=== PATIENT | male | born 1960 | race Caucasian/White ===

== ENCOUNTER → 2018-12-30 10:19 | Outpatient (CLI) | payer OTHER, SELFPAY ==
[2018-12-30 11:07] LABS: Hematocrit 41.1 % (41-53); Hemoglobin 13.7 g/dL (13.5-17.5); Mean Corpuscular HGB Conc 33.3 % (30-36); Mean Corpuscular Hemoglobin 30.1 PG (26-34); Mean Corpuscular Volume 90.3 fL (80-100); Platelet Count 267 X10^3/uL (150-400); Red Blood Cell Count 4.55 X10^6/uL (4.5-5.9); Red Cell Distribution Width 14.2 % (11.6-14.8)
[2018-12-30 11:17] LABS: Hemoglobin A1C% w Est Avg Glu 5.1 % (4.0-6.0)
[2018-12-30 12:10] LABS: Alanine Aminotransferase 35 IU/L (21-72); Albumin 4.2 g/dL (3.5-5.0); Albumin Globulin Ratio 1.4 (1.0-2.8); Alkaline Phosphatase 64 U/L (38-126); Aspartate Aminotransferase 27 IU/L (17-59); BUN Creatinine Ratio 14.4 (6-22); Bilirubin Total 0.6 mg/dL (0.2-1.3); Blood Urea Nitrogen 13 mg/dL (9-20); Calcium 9.6 mg/dL (8.4-10.2); Carbon Dioxide 26 mmol/L (22-32); Chloride 101 mmol/L (98-107); Cholesterol 148 mg/dL (140-199); Estimated Glomerular Filt Rate > 60.0 mL/min (>60); Glucose 110 mg/dL (70-100); HDL Cholesterol 52 mg/dL (40-60); HEMOLYSIS < 15 (0-50); LDL Cholesterol Calculated 82 mg/dL (<100); Potassium 4.5 mmol/L (3.4-5.1); Sodium 136 mmol/L (137-145); Total Protein 7.2 g/dL (6.3-8.2); Triglycerides 71 mg/dL (35-150)
[2018-12-30 12:38] LABS: Thyroid Stimulating Hormone < 0.02 uIU/mL (0.47-4.68)
== END ==
PROVIDERS: PCP Nurse Practitioner Family; Visit Provider Nurse Practitioner Family
DX: Z68.25 Body mass index [BMI] 25.0-25.9, adult (principal); E03.9 Hypothyroidism, unspecified
CPT/HCPCS: 36415; 80053; 80061; 83036; 84443; 85027

== ENCOUNTER → 2019-03-31 14:56 | Outpatient (CLI) | payer OTHER, SELFPAY ==
[2019-03-31 19:14] LABS: Thyroid Stimulating Hormone < 0.02 uIU/mL (0.47-4.68)
== END ==
PROVIDERS: PCP Nurse Practitioner Family; Visit Provider Nurse Practitioner Family
DX: E03.9 Hypothyroidism, unspecified (principal)
CPT/HCPCS: 36415; 84443

== ENCOUNTER → 2019-06-16 14:05 | Outpatient (CLI) | payer OTHER, SELFPAY ==
[2019-06-16 15:08] LABS: Thyroid Stimulating Hormone 6.71 uIU/mL (0.47-4.68)
== END ==
PROVIDERS: PCP Nurse Practitioner Family; Visit Provider Nurse Practitioner Family
DX: E03.9 Hypothyroidism, unspecified (principal); Z51.81 Encounter for therapeutic drug level monitoring
CPT/HCPCS: 36415; 84443

== ENCOUNTER → 2019-11-03 13:44 | Outpatient (CLI) | payer OTHER, SELFPAY | PROVIDERS: PCP Nurse Practitioner Family; Visit Provider Nurse Practitioner Family | DX: E03.9 Hypothyroidism, unspecified (principal) | CPT/HCPCS: 36415; 84443 ==

== ENCOUNTER → 2021-03-30 10:51 | Outpatient (CLI) | payer OTHER, SELFPAY ==
[2021-03-30 11:51] LABS: Alanine Aminotransferase 22 IU/L (<50); Albumin 4.6 g/dL (3.5-5.0); Albumin Globulin Ratio 1.4 (1.0-2.8); Alkaline Phosphatase 65 U/L (38-126); Aspartate Aminotransferase 47 IU/L (17-59); BUN Creatinine Ratio 17.5 (6-22); Bilirubin Total 0.5 mg/dL (0.2-1.3); Blood Urea Nitrogen 20 mg/dL (9-20); Calcium 9.6 mg/dL (8.4-10.2); Carbon Dioxide 26 mmol/L (22-32); Chloride 102 mmol/L (98-107); Estimated Glomerular Filt Rate > 60.0 mL/min (>60); Globulin 3.4 g/dL (1.7-4.1); Glucose 99 mg/dL (70-100); HEMOLYSIS < 15 (0-50); Sodium 137 mmol/L (137-145)
[2021-03-30 11:57] LABS: Hemoglobin A1C% w Est Avg Glu 5.5 % (4.0-6.0)
[2021-03-30 12:46] LABS: Free T4, Direct Thyroxine 0.39 ng/dL (0.78-2.19)
[2021-03-30 13:48] LABS: Thyroid Stimulating Hormone 117 uIU/mL (0.47-4.68)
== END ==
PROVIDERS: PCP Nurse Practitioner Family; Referring Provider Family Medicine; Visit Provider Family Medicine
DX: E03.9 Hypothyroidism, unspecified (principal); F41.9 Anxiety disorder, unspecified
CPT/HCPCS: 36415; 80053; 83036; 84439; 84443

== ENCOUNTER → 2021-07-27 14:47 | Outpatient (CLI) | payer OTHER, SELFPAY ==
[2021-07-27 16:30] LABS: Thyroid Stimulating Hormone 12.3 uIU/mL (0.47-4.68)
== END ==
PROVIDERS: PCP Nurse Practitioner Family; Referring Provider Nurse Practitioner Family; Visit Provider Nurse Practitioner Family
DX: E03.9 Hypothyroidism, unspecified (principal)
CPT/HCPCS: 36415; 84439; 84443

== ENCOUNTER 2021-09-19 14:37 | Observation (INO) | payer OTHER, SELFPAY ==
[2021-09-19] VITALS (36 sets, daily range): BP systolic 113–151; BP diastolic 66–94; PULSE 51–80; RESP 13–43; TEMP 36.7; O2SAT 97–99
--- NOTE | 2021-09-19 14:59 | ED.GENADULT ---
HPI - General Adult General Chief complaint: Dizziness Stated complaint: Dizzy, and hard to breath Time Seen by Provider: 09/19/21 14:54 Source: patient Mode of arrival: Wheelchair Limitations: altered mental status History of Present Illness HPI narrative: Patient is a 61-year-old male who arrived to the emergency department by private vehicle for what was initially described as dizziness and problems breathing. Patient is confused and seems to have a hard time he specifically saying why he is here. He denies chest pain although he seems to sometimes inappropriately answer questions so unsure as to what exactly to believe with regard to his answers. He talks about falling sometime within the past couple days. Unsure as to how he fell. When asked if he is having leg pain he answers with ?baseball bat ?unsure as to how long his symptoms have been going on. He denies abdominal pain. Denies vomiting. He does deny headache. Related Data Home Medications Medication Instructions Recorded Confirmed levothyroxine 175 mcg tablet 175 mcg PO QAM 09/19/21 09/19/21 Previous Rx's Medication Instructions Recorded hydroxyzine pamoate 50 mg capsule 50 mg PO BEDTIME PRN #60 cap 11/05/20 Allergies Allergy/AdvReac Type Severity Reaction Status Date / Time zolpidem [From Ambien] Allergy Severe throat Verified 09/19/21 15:00 swelling lithium Allergy Intermediate Lightheadedness, Verified 09/19/21 15:00 ringing ears. trazodone Allergy Patient Verified 09/19/21 15:00 unsure, thinks he may have been allergic to it. Review of Systems Review of Systems Narrative: Patient has positive and negative answers are listed below however I have some concern about the accuracy given his presentation Constitutional Constitutional: Denies headache(s) ENT Ears, Nose, Mouth, and Throat: Denies headache(s) Cardiovascular Cardiovascular: Denies chest pain and Reports dyspnea Respiratory Respiratory: Reports dyspnea Gastrointestinal Gastrointestinal: Denies abdominal pain and Denies vomiting Musculoskeletal Comments: No extremity tenderness Neurologic Neurologic: Reports as per HPI and Denies headache(s) Hematologic/Lymphatic On Anticoagulants: No Patient History Medical History Anxiety Bipolar disorder Depression Eczema (~1975) Headache Insomnia Low back strain Surgical History Anesthesia Fractures (~1981) History of hernia repair (~1969) Family History Father Glaucoma Hypertension Social History Smoking Status: Never smoker second hand exposure: No alcohol intake: never substance use type: does not use Smoking Status: Never smoker alcohol intake frequency: 0-2 drinks per day Substance Use Type: does not use Exam Initial Vital Signs Initial Vital Signs: Vital Signs Temperature 98.1 F 09/19/21 14:45 Pulse Rate 69 09/19/21 14:45 Respiratory Rate 22 09/19/21 14:45 Blood Pressure 133/86 09/19/21 14:45 Pulse Oximetry 99 09/19/21 14:45 Const General: cooperative, healthy appearing, well developed, well groomed and No ill appearing HENMT Head: normal to inspection and normocephalic Mouth: moist mucous membranes Eyes Pupils: PERRL EOM: EOM intact bilaterally Resp Effort & Inspection: normal respiratory effort Auscultation: clear to auscultation bilaterally Cardio Rate: regular rate Rhythm: regular rhythm GI Inspection: non-distended Palpation: soft Skin General: no rashes or lesions noted Neuro Other: Patient does move all 4 extremities. Is ambulatory. Strength is equal bilateral. Does follow commands but does provide inappropriate answers. Extrem General: capillary refill normal Psych Appearance: grossly normal and well kempt Scores GCS Renaldo coma scale eye opening: Spontaneous Renaldo coma scale verbal response: Words Renaldo coma scale motor response: Obey commands Renaldo coma scale total score: 13 Course Orders Ordered: ED Orders 09/19/21 14:55 Acetaminophen Stat Complete Blood Count AUTO DIFF Stat Comprehensive Metabolic Panel Stat Ethanol (ETOH) Stat Lipase Stat NT-proBNP (BNP-Adult 18+) Stat Salicylate Stat Thyroid Stimulating Hormone Stat Troponin & CK Cardiac Panel Stat 09/19/21 15:00 COVID19 -Nasal swab/Pre-Proc Stat 09/19/21 15:01 CT head/brain wo con Stat EKG-12 Lead Stat 09/19/21 15:03 COVID19 - ADMIT ([employer] swab/PCR) Stat 09/19/21 17:09 Urine Drug Screen, Rapid Stat 09/19/21 17:20 Urinalysis and Microscopic Stat Acetaminophen (Acetaminophen 325 Mg Tablet) 650 mg PO Q6HR PRN PRN Reason: Fever/Mild Pain (1-3) Enoxaparin Sodium (Enoxaparin 40 Mg/0.4 Ml Syringe) 40 mg SUBCUT DAILY [facility] Sodium Chloride (Normal Saline 0.9%) 1,000 mls @ 100 mls/hr IV CONT JULIA Last Admin: 09/19/21 18:39 Dose: 100 mls/hr Documented by: TIGRE Naloxone HCl (Naloxone 0.4 Mg/Ml Vial) 0.2 mg IV Q2MIN PRN PRN Reason: Opiate Reversal Ondansetron HCl (Ondansetron 4 Mg/2 Ml Inj) 4 mg IV Q8HR PRN PRN Reason: Nausea And Vomiting Vital Signs Vital signs: Vital Signs - 8 hr 09/19/21 14:45 09/19/21 14:51 09/19/21 15:00 Temperature 98.1 F Pulse Rate 69 69 65 Respiratory Rate 22 18 16 Blood Pressure 133/86 151/79 H Pulse Oximetry 99 98 98 09/19/21 15:16 09/19/21 15:30 09/19/21 15:45 Temperature Pulse Rate 58 L 54 L Respiratory Rate 13 Blood Pressure Pulse Oximetry 98 09/19/21 16:00 09/19/21 16:15 09/19/21 16:55 Temperature Pulse Rate 58 L 61 80 Respiratory Rate Blood Pressure Pulse Oximetry 09/19/21 16:56 09/19/21 17:02 Temperature Pulse Rate Respiratory Rate Blood Pressure 135/88 134/87 Pulse Oximetry Medical Decision Making Lab Data Lab results reviewed: Yes I reviewed the patient's lab results. Result diagrams: 09/19/21 14:55 09/19/21 14:55 Labs: Lab Results 09/19/21 09/19/21 09/19/21 Range/Units 14:55 14:55 14:55 WBC 7.1 (4.5-11.0) X10^3/uL RBC 4.42 L (4.5-5.9) X10^6/uL Hgb 13.5 (13.5-17.5) g/dL Hct 39.8 L (41-53) % MCV 90.0 (80-100) fL MCH 30.6 (26-34) PG MCHC 34.0 (30-36) % RDW 13.3 (11.6-14.8) % Plt Count 252 (150-400) X10^3/uL Neut % (Auto) 68.4 (50-75) % Lymph % (Auto) 20.9 L (25-40) % [place] % (Auto) 8.5 (3-14) % Eos % (Auto) 1.1 L (2-4) % Baso % (Auto) 1.1 (0-2) % Neut # (Auto) 4900 (8498-2801) /uL Lymph # (Auto) 1500 (0861-0742) /uL [place] # (Auto) 600 (0-900) /uL Eos # (Auto) 100 (0-450) /uL Baso # (Auto) 100 (0-100) /uL Sodium 136 L (137-145) mmol/L Potassium 3.9 (3.4-5.1) mmol/L Chloride 102 (98-107) mmol/L Carbon Dioxide 23 (22-32) mmol/L BUN 12 (9-20) mg/dL Creatinine 0.76 (0.66-1.25) mg/dL Estimated GFR > 60.0 (>60) mL/min BUN/Creatinine Ratio 15.8 (6-22) Glucose 117 H (80-110) mg/dL Calcium 9.0 (8.4-10.2) mg/dL Total Bilirubin 0.6 (0.2-1.3) mg/dL AST 50 (17-59) IU/L ALT 20 (<50) IU/L Alkaline Phosphatase 48 (38-126) U/L Total Creatine Kinase 347 H (55-170) U/L CK-MB (CK-2) 8.97 H (<2.37) ng/mL CK-MB (CK-2) Rel Index 2.6 (1.5-5.0) % Troponin I < 0.012 (0.01-0.034) ng/mL NT-Pro-B Natriuret Pep 46 (<125) pg/mL Total Protein 7.6 (6.3-8.2) g/dL Albumin 4.5 (3.5-5.0) g/dL Globulin 3.1 (1.7-4.1) g/dL Albumin/Globulin Ratio 1.5 (1.0-2.8) Lipase 78 (23-300) U/L TSH (0.47-4.68) uIU/mL Salicylates 6.9 (<20) mg/dL U Opiates 300ng/mL cut (Negative) Ur Oxycodone Screen (Negative) Urine Methadone Screen (Negative) Acetaminophen < 10 L (10-30) ug/mL Ur Barbiturates Screen (Negative) U Tricyclic Antidepress (Negative) Ur Phencyclidine Scrn (Negative) Ur Amphetamines Screen (Negative) U Methamphetamines Scrn (Negative) Ur MDMA Scrn (Ecstasy) (Negative) U Benzodiazepines Scrn (Negative) Urine Cocaine Screen (Negative) U Marijuana (THC) Screen (Negative) Ethyl Alcohol < 10 ( - 10) mg/dL SARS-CoV-2 (PCR) (Negative) 09/19/21 09/19/21 09/19/21 Range/Units 14:55 15:00 15:03 WBC (4.5-11.0) X10^3/uL RBC (4.5-5.9) X10^6/uL Hgb (13.5-17.5) g/dL Hct (41-53) % MCV (80-100) fL MCH (26-34) PG MCHC (30-36) % RDW (11.6-14.8) % Plt Count (150-400) X10^3/uL Neut % (Auto) (50-75) % Lymph % (Auto) (25-40) % [place] % (Auto) (3-14) % Eos % (Auto) (2-4) % Baso % (Auto) (0-2) % Neut # (Auto) (3445-1797) /uL Lymph # (Auto) (5524-4707) /uL [place] # (Auto) (0-900) /uL Eos # (Auto) (0-450) /uL Baso # (Auto) (0-100) /uL Sodium (137-145) mmol/L Potassium (3.4-5.1) mmol/L Chloride (98-107) mmol/L Carbon Dioxide (22-32) mmol/L BUN (9-20) mg/dL Creatinine (0.66-1.25) mg/dL Estimated GFR (>60) mL/min BUN/Creatinine Ratio (6-22) Glucose (80-110) mg/dL Calcium (8.4-10.2) mg/dL Total Bilirubin (0.2-1.3) mg/dL AST (17-59) IU/L ALT (<50) IU/L Alkaline Phosphatase (38-126) U/L Total Creatine Kinase (55-170) U/L CK-MB (CK-2) (<2.37) ng/mL CK-MB (CK-2) Rel Index (1.5-5.0) % Troponin I (0.01-0.034) ng/mL NT-Pro-B Natriuret Pep (<125) pg/mL Total Protein (6.3-8.2) g/dL Albumin (3.5-5.0) g/dL Globulin (1.7-4.1) g/dL Albumin/Globulin Ratio (1.0-2.8) Lipase (23-300) U/L TSH 8.09 H (0.47-4.68) uIU/mL Salicylates (<20) mg/dL U Opiates 300ng/mL cut (Negative) Ur Oxycodone Screen (Negative) Urine Methadone Screen (Negative) Acetaminophen (10-30) ug/mL Ur Barbiturates Screen (Negative) U Tricyclic Antidepress (Negative) Ur Phencyclidine Scrn (Negative) Ur Amphetamines Screen (Negative) U Methamphetamines Scrn (Negative) Ur MDMA Scrn (Ecstasy) (Negative) U Benzodiazepines Scrn (Negative) Urine Cocaine Screen (Negative) U Marijuana (THC) Screen (Negative) Ethyl Alcohol ( - 10) mg/dL SARS-CoV-2 (PCR) Negative Negative (Negative) 09/19/21 Range/Units 17:09 WBC (4.5-11.0) X10^3/uL RBC (4.5-5.9) X10^6/uL Hgb (13.5-17.5) g/dL Hct (41-53) % MCV (80-100) fL MCH (26-34) PG MCHC (30-36) % RDW (11.6-14.8) % Plt Count (150-400) X10^3/uL Neut % (Auto) (50-75) % Lymph % (Auto) (25-40) % [place] % (Auto) (3-14) % Eos % (Auto) (2-4) % Baso % (Auto) (0-2) % Neut # (Auto) (7560-7370) /uL Lymph # (Auto) (1790-7405) /uL [place] # (Auto) (0-900) /uL Eos # (Auto) (0-450) /uL Baso # (Auto) (0-100) /uL Sodium (137-145) mmol/L Potassium (3.4-5.1) mmol/L Chloride (98-107) mmol/L Carbon Dioxide (22-32) mmol/L BUN (9-20) mg/dL Creatinine (0.66-1.25) mg/dL Estimated GFR (>60) mL/min BUN/Creatinine Ratio (6-22) Glucose (80-110) mg/dL Calcium (8.4-10.2) mg/dL Total Bilirubin (0.2-1.3) mg/dL AST (17-59) IU/L ALT (<50) IU/L Alkaline Phosphatase (38-126) U/L Total Creatine Kinase (55-170) U/L CK-MB (CK-2) (<2.37) ng/mL CK-MB (CK-2) Rel Index (1.5-5.0) % Troponin I (0.01-0.034) ng/mL NT-Pro-B Natriuret Pep (<125) pg/mL Total Protein (6.3-8.2) g/dL Albumin (3.5-5.0) g/dL Globulin (1.7-4.1) g/dL Albumin/Globulin Ratio (1.0-2.8) Lipase (23-300) U/L TSH (0.47-4.68) uIU/mL Salicylates (<20) mg/dL U Opiates 300ng/mL cut Negative (Negative) Ur Oxycodone Screen Negative (Negative) Urine Methadone Screen Negative (Negative) Acetaminophen (10-30) ug/mL Ur Barbiturates Screen Negative (Negative) U Tricyclic Antidepress Negative (Negative) Ur Phencyclidine Scrn Negative (Negative) Ur Amphetamines Screen Negative (Negative) U Methamphetamines Scrn Negative (Negative) Ur MDMA Scrn (Ecstasy) Negative (Negative) U Benzodiazepines Scrn Negative (Negative) Urine Cocaine Screen Negative (Negative) U Marijuana (THC) Screen Positive H (Negative) Ethyl Alcohol ( - 10) mg/dL SARS-CoV-2 (PCR) (Negative) Urine Dip Bedside Urine Glucose Negative Bedside Urine Bilirubin - Negative Bedside Urine Ketone - Negative Urine Specific [place] 1.025 Bedside Urine Occult Blood - Negative Bedside Urine pH 6.0 Bedside Urine Protein - Negative Bedside Urine Urobilinogen - Negative Bedside Urine Nitrite - Negative Bedside Urine Leukocytes - Negative Esterase Point of care testing: Urine Dip Bedside Urine Glucose Negative Bedside Urine Bilirubin - Negative Bedside Urine Ketone - Negative Urine Specific [place] 1.025 Bedside Urine Occult Blood - Negative Bedside Urine pH 6.0 Bedside Urine Protein - Negative Bedside Urine Urobilinogen - Negative Bedside Urine Nitrite - Negative Bedside Urine Leukocytes - Negative Esterase Imaging Data CT scan - head: Radiologist's Impression: [address] [address] [address] Scan Report Signed Patient: Gary Gomes MR#: [id number] : 1960 Acct:[id number] Age/Sex: 61 / M Date of Service: 09/19/21 Loc: ED Accession Number: [id number] ?? Procedure: CT head/brain wo con Ordering Provider: Sung Valentin D.O. PROCEDURE:? CT HEAD/BRAIN WO CON ? INDICATIONS:? Confusion ? TECHNIQUE:? Noncontrast 4.5 mm thick angled axial sections acquired from the foramen magnum to the vertex, with coronal and sagittal reformats.? For radiation dose reduction, the following was used:? automated exposure control, adjustment of mA and/or kV according to patient size.? ? COMPARISON:? None. ? FINDINGS:? Image quality:? Excellent.? ? CSF spaces:? Basal cisterns are patent.? No extra-axial fluid collections.? Ventricles are normal in size and shape.? ? Brain:? No midline shift.? No intracranial masses or hemorrhage.? Brooke-white matter interface is normal.? ? Skull and face:? Calvarium and visualized facial bones are intact, without suspicious lesions.? ? Sinuses:? Visualized sinuses and mastoids are clear.? ? IMPRESSION:? ? 1. No acute intracranial process. ? ? Dictated by: Marybeth Parry M.D. on 09/19/2021 at 15:29 ? ? Approved by: Marybeth Parry M.D. on 09/19/2021 at 15:30? ECG Data Attestation: I personally reviewed and interpreted this ECG as follows: Interpretation: Sinus bradycardia Ventricular rate of 53 Normal axis Normal QRS Normal QTC No ST T wave changes MDM Narrative Medical decision making narrative: Is very difficult to obtain in HPI or review of systems from the patient. Unsure exactly how long his symptoms have been going on or what exactly he is here in the emergency department for. He is obviously confused and providing inappropriate answers to questioning. His head CT is unremarkable. EKG is unremarkable. Labs are unremarkable. He does have marijuana in his urine but no other signs of drugs. Alcohol levels negative. Does not fit any specific toxidrome. His TSH is elevated however I feel that his presenting symptoms are not specifically related to hypothyroidism. Patient does have a history of bipolar per his medical history. This could potentially be jacob. I did discuss the case with the hospitalist who will admit for further evaluation and treatment. Informed the patient that I think we should admit him to the hospital and he agreed to this. Discharge Plan Departure Patient Disposition: Admitted As Inpatient Clinical Impression: Altered mental status, Hypothyroid Admit Date/Time: 09/19/21 17:28 Admit Provider: Zakia Toscano
--- NOTE | 2021-09-19 15:01 | DI.CT.S_ITS ---
PROCEDURE: CT HEAD/BRAIN WO CON INDICATIONS: Confusion TECHNIQUE: Noncontrast 4.5 mm thick angled axial sections acquired from the foramen magnum to the vertex, with coronal and sagittal reformats. For radiation dose reduction, the following was used: automated exposure control, adjustment of mA and/or kV according to patient size. COMPARISON: None. FINDINGS: Image quality: Excellent. CSF spaces: Basal cisterns are patent. No extra-axial fluid collections. Ventricles are normal in size and shape. Brain: No midline shift. No intracranial masses or hemorrhage. Brooke-white matter interface is normal. Skull and face: Calvarium and visualized facial bones are intact, without suspicious lesions. Sinuses: Visualized sinuses and mastoids are clear. IMPRESSION: 1. No acute intracranial process. Dictated by: Marybeth Parry M.D. on 09/19/2021 at 15:29 Approved by: Marybeth Prary M.D. on 09/19/2021 at 15:30
[2021-09-19 15:15] LABS: Add Manual Diff / Slide Review NO; Basophils Absolute Auto 100 /uL (0-100); Basophils Percent Auto 1.1 % (0-2); Eosinophils Absolute Auto 100 /uL (0-450); Eosinophils Percent Auto 1.1 % (2-4); Hematocrit 39.8 % (41-53); Hemoglobin 13.5 g/dL (13.5-17.5); Lymphocytes Absolute Auto 1500 /uL (1100-4500); Lymphocytes Percent Auto 20.9 % (25-40); Mean Corpuscular Hemoglobin 30.6 PG (26-34); Monocytes Absolute Auto 600 /uL (0-900); Monocytes Percent Auto 8.5 % (3-14); Neutrophils Absolute Auto 4900 /uL (1500-7000); Neutrophils Percent Auto 68.4 % (50-75); Platelet Count 252 X10^3/uL (150-400); Red Blood Cell Count 4.42 X10^6/uL (4.5-5.9); Red Cell Distribution Width 13.3 % (11.6-14.8); White Blood Cell Count 7.1 X10^3/uL (4.5-11.0)
[2021-09-19 15:30] LABS: Creatine Kinase 347 U/L (55-170); Lipase 78 U/L (23-300); Salicylate 6.9 mg/dL (<20)
[2021-09-19 15:32] LABS: Acetaminophen < 10 ug/mL (10-30); Alanine Aminotransferase 20 IU/L (<50); Albumin 4.5 g/dL (3.5-5.0); Albumin Globulin Ratio 1.5 (1.0-2.8); Alkaline Phosphatase 48 U/L (38-126); Aspartate Aminotransferase 50 IU/L (17-59); BUN Creatinine Ratio 15.8 (6-22); Bilirubin Total 0.6 mg/dL (0.2-1.3); Blood Urea Nitrogen 12 mg/dL (9-20); Carbon Dioxide 23 mmol/L (22-32); Chloride 102 mmol/L (98-107); Estimated Glomerular Filt Rate > 60.0 mL/min (>60); Ethanol (ETOH) < 10 mg/dL; Globulin 3.1 g/dL (1.7-4.1); Glucose 117 mg/dL (80-110); Potassium 3.9 mmol/L (3.4-5.1); Sodium 136 mmol/L (137-145); Total Protein 7.6 g/dL (6.3-8.2)
[2021-09-19 15:33] LABS: COVID19 -Nasal RAPID Negative (Negative)
[2021-09-19 15:42] LABS: HEMOLYSIS 91 (0-50)
[2021-09-19 15:43] LABS: NT-proBNP (BNP-Adult 18+) 46 pg/mL (<125); Troponin I < 0.012 ng/mL (0.01-0.034)
[2021-09-19 15:46] LABS: CKMB % Relative Index 2.6 % (1.5-5.0); Creatine Kinase MB 8.97 ng/mL (<2.37)
[2021-09-19 16:02] LABS: Thyroid Stimulating Hormone 8.09 uIU/mL (0.47-4.68)
[2021-09-19 16:25] LABS: COVID19 - ADMIT (NP swab/PCR) Negative (Negative)
[2021-09-19 17:22] LABS: UR Morphine/Opiate cutoff 300 Negative (Negative); Ur Creatinine Normal (Normal); Ur Specific Gravity Normal (Normal); Urine Amphetamines Negative (Negative); Urine Barbiturates Negative (Negative); Urine Benzodiazepines Negative (Negative); Urine Cocaine Negative (Negative); Urine MDMA Negative (Negative); Urine Methadone Negative (Negative); Urine Methamphetamines Negative (Negative); Urine Oxycodone Negative (Negative); Urine Phencyclidine Negative (Negative); Urine Tetrahydrocannabinol Positive (Negative); Urine Tricyclic Antidepressant Negative (Negative); Urine pH Normal (Normal)
[2021-09-19] MEDS: SODIUM CHLORIDE 0.9% 1,000 ML 100 ML IV (18:39)
[2021-09-19 19:38] LABS: Appearance Urine UA CLEAR; Bilirubin Urine UA NEGATIVE (NEGATIVE); Color Urine UA YELLOW; Glucose Urine UA NEGATIVE (Negative); Ketones Urine UA NEGATIVE (NEGATIVE); Leukocyte Esterase Urine UA NEGATIVE (NEGATIVE); Nitrite Urine UA NEGATIVE (Negative); Occult Blood Urine UA NEGATIVE (Negative); Protein Urine UA NEGATIVE (Negative); Urobilinogen Urine UA 0.2 E.U./dL (0.2); pH Urine UA 5.5 (4.5-8.0)
--- NOTE | 2021-09-19 20:30 | DI.RAD.S_ITS ---
PROCEDURE: XR CHEST 2V INDICATIONS: Shortness of breath TECHNIQUE: 2 views of the chest were acquired. COMPARISON: None. FINDINGS: Surgical changes and devices: None. Lungs and pleura: Lungs are clear. No pleural effusions or pneumothorax. Mediastinum: Mediastinal contours are normal. Heart size is normal. Bones and chest wall: No suspicious bony abnormalities. Soft tissues appear unremarkable. IMPRESSION: No acute cardiopulmonary abnormality. Dictated by: Pa Wright M.D. on 09/19/2021 at 21:38 Approved by: Pa Wright M.D. on 09/19/2021 at 21:38
--- NOTE | 2021-09-19 20:48 | PM.HP.1 ---
History of Present Illness History of Present Illness Date Patient Seen: 09/19/21 Time Patient Seen: 20:48 Chief complaint: Dizzy, and hard to breath Narrative: Gary Gomes ?is a 61-year-old male with a history of hypothyroidism and bipolar disorder who presented to the emergency department by private vehicle for what was initially described as dizziness and problems breathing.? Patient is a difficult historian is appears to be quite confused and anxious. He states he fell 2 days ago and has had feeling of something pulling at him down. He then tells me that he has lost about 40-45 lb over the last 5 months and has not been eating initially because he could not taste anything. He states that he does not believe he has had COVID-19, states he received his 1st COVID-19 vaccination in February at [facility]. He is not due for his 2nd vaccine as yet. Denies dizziness, headaches, shortness of breath, chest pain, abdominal pain, nausea or vomiting, dysuria, diarrhea constipation. Is confused and seems to have a hard time he specifically saying why he is here.? He states he came to the emergency room because he was unable to see his PCP until sometime in October. He denies that any of his symptoms currently are new. I discussed his case with his brother Shelby who lives in [facility] and he states that the patient seems to have started the spiral in the last week and half. Shelby said that the patient has had a series of social losses including a baby of a friend of his, but is CT has cancer and has to return the CT to a long-term, and that he was given notice that he needs to be vacate his rental in [address] ordered in the emergency department did not reveal any acute intracranial process or stroke. He is afebrile, blood pressure 127/66, heart rate 71, respiratory rate 16, oxygen saturation 98% on room air he weighs 82 kg. Is unremarkable, mildly elevated glucose at 1:17 a.m., CK is elevated at 347 and CK-MB is 8.97 also elevated, TSH was 8.09 however does free T4 was normal, additional workup in house today includes a free T4 of 1.54 which is normal, procalcitonin is WNL, chest x-ray is negative for any cardiopulmonary process. I have also ordered a COVID-19 antibody panel. Patient History Medical History Anxiety Bipolar disorder Depression Eczema (~1975) Headache Insomnia Low back strain Surgical History Anesthesia Fractures (~1981) History of hernia repair (~1969) Family & Social History Family History Father Glaucoma Hypertension Mother Lung cancer Social History: Multiple losses, given notice to vacate rental in 3 months. Safety & Behavioral: Feels Safe in Current Yes Environment Been Physically Hurt or No Threatened By a Person Tobacco & Substance use: Smoking Status Never smoker alcohol intake never alcohol intake frequency denies current use Substance Use Type marijuana Meds Home Medications and Allergies Home Medications Medication Instructions Recorded Confirmed Type hydroxyzine pamoate 50 mg capsule 50 mg PO BEDTIME PRN #60 cap 11/05/20 09/19/21 Rx levothyroxine 175 mcg tablet 175 mcg PO QAM 09/19/21 09/19/21 History Allergies Allergy/AdvReac Type Severity Reaction Status Date / Time zolpidem [From Ambien] Allergy Severe throat Verified 09/19/21 15:00 swelling lithium Allergy Intermediate Lightheadedness, Verified 09/19/21 15:00 ringing ears. trazodone Allergy Patient Verified 09/19/21 15:00 unsure, thinks he may have been allergic to it. Review of Systems Review of Systems ROS: Yes All systems reviewed with the patient and are negative except as otherwise documented Exam Vital Signs (past 8 hours): - 09/19/21 14:45 09/19/21 14:51 09/19/21 15:00 Temperature 98.1 F Pulse Rate 69 69 65 Respiratory Rate 22 18 16 Blood Pressure 133/86 151/79 H Pulse Oximetry 99 98 98 09/19/21 15:16 09/19/21 15:30 09/19/21 15:45 Temperature Pulse Rate 58 L 54 L Respiratory Rate 13 Blood Pressure Pulse Oximetry 98 09/19/21 16:00 09/19/21 16:15 09/19/21 16:55 Temperature Pulse Rate 58 L 61 80 Respiratory Rate Blood Pressure Pulse Oximetry 09/19/21 16:56 09/19/21 17:02 09/19/21 17:30 Temperature Pulse Rate 64 Respiratory Rate 20 Blood Pressure 135/88 134/87 121/77 Pulse Oximetry 09/19/21 17:45 09/19/21 18:00 09/19/21 18:01 Temperature Pulse Rate 55 L 70 70 Respiratory Rate 16 30 H 37 H Blood Pressure 113/83 Pulse Oximetry 09/19/21 18:15 09/19/21 18:30 09/19/21 18:31 Temperature Pulse Rate 76 78 79 Respiratory Rate 43 H 32 H 25 H Blood Pressure 126/70 Pulse Oximetry 09/19/21 18:45 09/19/21 18:55 09/19/21 19:00 Temperature Pulse Rate 64 64 70 Respiratory Rate 20 15 29 H Blood Pressure 121/94 H Pulse Oximetry 09/19/21 19:01 09/19/21 19:15 09/19/21 19:30 Temperature Pulse Rate 75 61 60 Respiratory Rate 19 17 13 Blood Pressure 124/67 Pulse Oximetry 09/19/21 19:32 09/19/21 19:45 09/19/21 20:00 Temperature Pulse Rate 57 L 62 60 Respiratory Rate 16 13 22 Blood Pressure 123/66 136/74 Pulse Oximetry 09/19/21 20:15 09/19/21 20:30 09/19/21 20:31 Temperature Pulse Rate 58 L 79 71 Respiratory Rate 18 28 H 16 Blood Pressure 127/66 Pulse Oximetry Oxygen Delivery Method Room Air Narrative Exam Narrative: Gen: Alert, oriented, well-developed 61 y.o. male, NAD HEENT: normocephalic, atraumatic, conjunctiva clear, sclera non-icteric, oral mucosa pink and moist Neck: supple, full ROM, no JVD, trachea is midline Resp: Lungs CTA, non-labored breathing CV: RRR, no murmur or rubs Abd: soft, non-tender, normoactive BTs Skin: no lesions or rashes, dry and intact Neuro: Speech tangential, difficult historian. Possibly impaired vs underlying mental disorder Extremities: moves all 4 extremities, is ambulatory, negative Digna?s sign Psyche: appears to be in mild psychosis, but cooperative. Objective Labs Result Diagrams: 09/19/21 14:55 09/19/21 14:55 Labs: Laboratory Results - last 24 hr 09/19/21 09/19/21 09/19/21 14:55 14:55 14:55 WBC 7.1 RBC 4.42 L Hgb 13.5 Hct 39.8 L MCV 90.0 MCH 30.6 MCHC 34.0 RDW 13.3 Plt Count 252 Neut % (Auto) 68.4 Lymph % (Auto) 20.9 L [place] % (Auto) 8.5 Eos % (Auto) 1.1 L Baso % (Auto) 1.1 Neut # (Auto) 4900 Lymph # (Auto) 1500 [place] # (Auto) 600 Eos # (Auto) 100 Baso # (Auto) 100 Sodium 136 L Potassium 3.9 Chloride 102 Carbon Dioxide 23 BUN 12 Creatinine 0.76 Estimated GFR > 60.0 BUN/Creatinine Ratio 15.8 Glucose 117 H Calcium 9.0 Total Bilirubin 0.6 AST 50 ALT 20 Alkaline Phosphatase 48 Total Creatine Kinase 347 H CK-MB (CK-2) 8.97 H CK-MB (CK-2) Rel Index 2.6 Troponin I < 0.012 NT-Pro-B Natriuret Pep 46 Total Protein 7.6 Albumin 4.5 Globulin 3.1 Albumin/Globulin Ratio 1.5 Lipase 78 TSH Salicylates 6.9 U Opiates 300ng/mL cut Ur Oxycodone Screen Urine Methadone Screen Acetaminophen < 10 L Ur Barbiturates Screen U Tricyclic Antidepress Ur Phencyclidine Scrn Ur Amphetamines Screen U Methamphetamines Scrn Ur MDMA Scrn (Ecstasy) U Benzodiazepines Scrn Urine Cocaine Screen U Marijuana (THC) Screen Ethyl Alcohol < 10 SARS-CoV-2 (PCR) 09/19/21 09/19/21 09/19/21 14:55 15:00 15:03 WBC RBC Hgb Hct MCV MCH MCHC RDW Plt Count Neut % (Auto) Lymph % (Auto) [place] % (Auto) Eos % (Auto) Baso % (Auto) Neut # (Auto) Lymph # (Auto) [place] # (Auto) Eos # (Auto) Baso # (Auto) Sodium Potassium Chloride Carbon Dioxide BUN Creatinine Estimated GFR BUN/Creatinine Ratio Glucose Calcium Total Bilirubin AST ALT Alkaline Phosphatase Total Creatine Kinase CK-MB (CK-2) CK-MB (CK-2) Rel Index Troponin I NT-Pro-B Natriuret Pep Total Protein Albumin Globulin Albumin/Globulin Ratio Lipase TSH 8.09 H Salicylates U Opiates 300ng/mL cut Ur Oxycodone Screen Urine Methadone Screen Acetaminophen Ur Barbiturates Screen U Tricyclic Antidepress Ur Phencyclidine Scrn Ur Amphetamines Screen U Methamphetamines Scrn Ur MDMA Scrn (Ecstasy) U Benzodiazepines Scrn Urine Cocaine Screen U Marijuana (THC) Screen Ethyl Alcohol SARS-CoV-2 (PCR) Negative Negative 09/19/21 17:09 WBC RBC Hgb Hct MCV MCH MCHC RDW Plt Count Neut % (Auto) Lymph % (Auto) [place] % (Auto) Eos % (Auto) Baso % (Auto) Neut # (Auto) Lymph # (Auto) [place] # (Auto) Eos # (Auto) Baso # (Auto) Sodium Potassium Chloride Carbon Dioxide BUN Creatinine Estimated GFR BUN/Creatinine Ratio Glucose Calcium Total Bilirubin AST ALT Alkaline Phosphatase Total Creatine Kinase CK-MB (CK-2) CK-MB (CK-2) Rel Index Troponin I NT-Pro-B Natriuret Pep Total Protein Albumin Globulin Albumin/Globulin Ratio Lipase TSH Salicylates U Opiates 300ng/mL cut Negative Ur Oxycodone Screen Negative Urine Methadone Screen Negative Acetaminophen Ur Barbiturates Screen Negative U Tricyclic Antidepress Negative Ur Phencyclidine Scrn Negative Ur Amphetamines Screen Negative U Methamphetamines Scrn Negative Ur MDMA Scrn (Ecstasy) Negative U Benzodiazepines Scrn Negative Urine Cocaine Screen Negative U Marijuana (THC) Screen Positive H Ethyl Alcohol SARS-CoV-2 (PCR) Assessment & Plan Assessment & Plan narrative: Gary Gomes is placed into observation for further evaluation of apparent encephalopathy and confusion. 1. Acute encephalopathy, not metabolic or toxic, present on admission. Patient has been ruled out for a neurologic condition such as a CVA CXR read negative for any acute cardiopulmonary process and procalcitonin is normal 2. Anosmia, acute, but several months long He states a weight loss of 40+ lbs since February of this year Started prior to patient receiving his first COVID-19 vaccine, currently not due for second dose in 2 months. 3. History of bipolar disorder, suspect is currently untreated Brother's characterization of the patient's ?spiraling? appears to possibly be a manic episode I have requested Psychiatry consult for the patient in the morning, Dr. Amador office will need to be contacted for consult. 4. Hypthyroidism, chronic and stable TSH was elevated, free T4 normal Continue home dose of levothyroxine 175 mg po daily VTE Prophylaxis: Wells risk score 0 X Enoxaparin 40 mg subQ once daily Patient is placed into observation as his stay is not expected to exceed 2 midnights. FEN: IV fluids: NS at 100 ml/hour, diet: ADAT to general, labs: CBC, C/BMP, liver enzymes, Mag, PT/INR Consultants Dr. Rowan, Psychiatry, care and involvement in the patient?s care is appreciated. Dispo: probable discharge to home, please make sure outpatient appointments are set up prior to discharge Code status: He states DNR/DNI, I have kept Full Code as discussed with the patient who identifies Shelby Gomes as his surrogate and POA as am not sure he has capacity at this time [X] I have utilized all available immediate resources to obtain, update, or review of the patient's current medications COVID-19 COVID-19 status: Negative Result date/Date tested (Pos, Neg/Pending): 09/19/21 Time Spent With Patient Critical Care time: I spent a total of [] minutes of critical care time on this patient's care today; this time is exclusive of procedural time. Scores Wells' Criteria for PE Clinical signs and symptoms of DVT: No PE is #1 Dx or equally likely: No Heart rate > 100: No Immobilization at least 3 days or surg in previous 4 weeks: No History of PE or DVT: No Hemoptysis: No Malignancy w/Treatment within 6 months or palliative: No Wells' PE Score total: 0 Quality MIPS - Admit I confirm the patient?s Advance Care Plan is present, Code status is documented, Surrogate decision maker is in patient?s record [If Yes, STOP here]: Yes MIPS - DC The patient has current or prior documentation of left ventricular ejection fraction (LVEF) less than 40%, or moderate or severely depressed left ventricular systolic function.: No
[2021-09-19 20:52] LABS: Bacteria Urine None Seen; Culture Indicated Urine Cult Not Indicated; RBC Urine None Seen (0-5/HPF); WBC Urine None Seen (0-5/HPF)
[2021-09-19 20:58] LABS: Free T4, Direct Thyroxine 1.54 ng/dL (0.78-2.19)
[2021-09-19 21:41] LABS: Procalcitonin 0.03 ng/mL (<0.5)
--- NOTE | 2021-09-19 22:26 | P.DS_ITS ---
History of Present Illness History of Present Illness Date Patient Seen: 09/19/21 Time Patient Seen: 22:26 Chief complaint: Altered mental status, falls Narrative: Gary Gomes ?is a 61-year-old male with a history of hypothyroidism and bipolar disorder who presented to the emergency department by private vehicle for what was initially described as dizziness and problems breathing.? Patient is a difficult historian is appears to be quite confused and anxious. He states he fell 2 days ago and has had feeling of something pulling at him down. He then tells me that he has lost about 40-45 lb over the last 5 months and has not been eating initially because he could not taste anything. He states that he does not believe he has had COVID-19, states he received his 1st COVID-19 vaccination in February at [facility]. He is not due for his 2nd vaccine as yet. D enies dizziness, headaches, shortness of breath, chest pain, abdominal pain, nausea or vomiting, dysuria, diarrhea constipation. Is confused and seems to have a hard time he specifically saying why he is here.? He states he came to the emergency room because he was unable to see his PCP until sometime in October. He denies that any of his symptoms currently are new. I discussed his case with his brother Shelby who lives in [facility] and he states that the patient seems to have started the spiral in the last week and half. Shelby said that the patient has had a series of social losses including a baby of a friend of his, but is CT has cancer and has to return the CT to a alf, and that he was given notice that he needs to be vacate his rental in [address] ordered in the emergency department did not reveal any acute intracranial process or stroke. He is afebrile, blood pressure 127/66, heart rate 71, respiratory rate 16, oxygen saturation 98% on room air he weighs 82 kg. Is unremarkable, mildly elevated glucose at 1:17 a.m., CK is elevated at 347 and CK-MB is 8.97 also elevated, TSH was 8.09 however does free T4 was normal, additional workup in house today includes a free T4 of 1.54 which is normal, procalcitonin is WNL, chest x-ray is negative for any cardiopulmonary process. I have also ordered a COVID-19 antibody panel. 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 Toxic metabolic encephalopathy ruled out as well as any infectious process. After discussion with both the patient and the patient's brotherShelby it appeared that the patient was likely being under treated for bipolar disorder. Consultations were signed and placed to take place tomorrow morning with psychiatry and social work however the patient wanted to go home and take care of his cat. It seemed to be reasonable that it would be a safe disposition he also seemed to be more coherent after discussing Against Medical Advice instructions with him. I have requested that social work reach out to him tomorrow and assist him in getting set up with primary care and psychiatry appointments as soon as possible. Patient agrees with the plan and states he will not smoke marijuana for at least several days. Status at Discharge Cognitive/behavioral status at discharge: at baseline, oriented Functional status at discharge: independent ambulation Overall status at discharge: patient is progressing back to baseline Exam Vital Signs (past 8 hours): - 09/19/21 14:45 09/19/21 14:51 09/19/21 15:00 Temperature 98.1 F Pulse Rate 69 69 65 Respiratory Rate 22 18 16 Blood Pressure 133/86 151/79 H Pulse Oximetry 99 98 98 09/19/21 15:16 09/19/21 15:30 09/19/21 15:45 Temperature Pulse Rate 58 L 54 L Respiratory Rate 13 Blood Pressure Pulse Oximetry 98 09/19/21 16:00 09/19/21 16:15 09/19/21 16:55 Temperature Pulse Rate 58 L 61 80 Respiratory Rate Blood Pressure Pulse Oximetry 09/19/21 16:56 09/19/21 17:02 09/19/21 17:30 Temperature Pulse Rate 64 Respiratory Rate 20 Blood Pressure 135/88 134/87 121/77 Pulse Oximetry 09/19/21 17:45 09/19/21 18:00 09/19/21 18:01 Temperature Pulse Rate 55 L 70 70 Respiratory Rate 16 30 H 37 H Blood Pressure 113/83 Pulse Oximetry 09/19/21 18:15 09/19/21 18:30 09/19/21 18:31 Temperature Pulse Rate 76 78 79 Respiratory Rate 43 H 32 H 25 H Blood Pressure 126/70 Pulse Oximetry 09/19/21 18:45 09/19/21 18:55 09/19/21 19:00 Temperature Pulse Rate 64 64 70 Respiratory Rate 20 15 29 H Blood Pressure 121/94 H Pulse Oximetry 09/19/21 19:01 09/19/21 19:15 09/19/21 19:30 Temperature Pulse Rate 75 61 60 Respiratory Rate 19 17 13 Blood Pressure 124/67 Pulse Oximetry 09/19/21 19:32 09/19/21 19:45 09/19/21 20:00 Temperature Pulse Rate 57 L 62 60 Respiratory Rate 16 13 22 Blood Pressure 123/66 136/74 Pulse Oximetry 09/19/21 20:15 09/19/21 20:30 09/19/21 20:31 Temperature Pulse Rate 58 L 79 71 Respiratory Rate 18 28 H 16 Blood Pressure 127/66 Pulse Oximetry 09/19/21 20:45 09/19/21 21:05 09/19/21 21:15 Temperature Pulse Rate 55 L 53 L 51 L Respiratory Rate 13 20 17 Blood Pressure Pulse Oximetry 99 98 09/19/21 21:30 09/19/21 21:45 09/19/21 22:00 Temperature Pulse Rate 65 58 L 53 L Respiratory Rate 20 21 19 Blood Pressure Pulse Oximetry 97 99 99 Oxygen Delivery Method Room Air Narrative Exam Narrative: See today's H and P Objective Labs Result Diagrams: 09/19/21 14:55 09/19/21 14:55 Labs: Laboratory Results - last 24 hr 09/19/21 09/19/21 09/19/21 14:55 14:55 14:55 WBC 7.1 RBC 4.42 L Hgb 13.5 Hct 39.8 L MCV 90.0 MCH 30.6 MCHC 34.0 RDW 13.3 Plt Count 252 Neut % (Auto) 68.4 Lymph % (Auto) 20.9 L [place] % (Auto) 8.5 Eos % (Auto) 1.1 L Baso % (Auto) 1.1 Neut # (Auto) 4900 Lymph # (Auto) 1500 [place] # (Auto) 600 Eos # (Auto) 100 Baso # (Auto) 100 Sodium 136 L Potassium 3.9 Chloride 102 Carbon Dioxide 23 BUN 12 Creatinine 0.76 Estimated GFR > 60.0 BUN/Creatinine Ratio 15.8 Glucose 117 H Calcium 9.0 Total Bilirubin 0.6 AST 50 ALT 20 Alkaline Phosphatase 48 Total Creatine Kinase 347 H CK-MB (CK-2) 8.97 H CK-MB (CK-2) Rel Index 2.6 Troponin I < 0.012 NT-Pro-B Natriuret Pep 46 Total Protein 7.6 Albumin 4.5 Globulin 3.1 Albumin/Globulin Ratio 1.5 Lipase 78 Procalcitonin TSH Free T4 Urine Color Urine Appearance Urine pH Ur Specific Saline Urine Protein Urine Glucose (UA) Urine Ketones Urine Occult Blood Urine Nitrate Urine Bilirubin Urine Urobilinogen Ur Leukocyte Esterase Urine RBC Urine WBC Urine Bacteria Ur Culture Indicated? Salicylates 6.9 U Opiates 300ng/mL cut Ur Oxycodone Screen Urine Methadone Screen Acetaminophen < 10 L Ur Barbiturates Screen U Tricyclic Antidepress Ur Phencyclidine Scrn Ur Amphetamines Screen U Methamphetamines Scrn Ur MDMA Scrn (Ecstasy) U Benzodiazepines Scrn Urine Cocaine Screen U Marijuana (THC) Screen Ethyl Alcohol < 10 SARS-CoV-2 (PCR) 09/19/21 09/19/21 09/19/21 14:55 14:55 14:55 WBC RBC Hgb Hct MCV MCH MCHC RDW Plt Count Neut % (Auto) Lymph % (Auto) [place] % (Auto) Eos % (Auto) Baso % (Auto) Neut # (Auto) Lymph # (Auto) [place] # (Auto) Eos # (Auto) Baso # (Auto) Sodium Potassium Chloride Carbon Dioxide BUN Creatinine Estimated GFR BUN/Creatinine Ratio Glucose Calcium Total Bilirubin AST ALT Alkaline Phosphatase Total Creatine Kinase CK-MB (CK-2) CK-MB (CK-2) Rel Index Troponin I NT-Pro-B Natriuret Pep Total Protein Albumin Globulin Albumin/Globulin Ratio Lipase Procalcitonin 0.03 TSH 8.09 H Free T4 1.54 Urine Color Urine Appearance Urine pH Ur Specific Saline Urine Protein Urine Glucose (UA) Urine Ketones Urine Occult Blood Urine Nitrate Urine Bilirubin Urine Urobilinogen Ur Leukocyte Esterase Urine RBC Urine WBC Urine Bacteria Ur Culture Indicated? Salicylates U Opiates 300ng/mL cut Ur Oxycodone Screen Urine Methadone Screen Acetaminophen Ur Barbiturates Screen U Tricyclic Antidepress Ur Phencyclidine Scrn Ur Amphetamines Screen U Methamphetamines Scrn Ur MDMA Scrn (Ecstasy) U Benzodiazepines Scrn Urine Cocaine Screen U Marijuana (THC) Screen Ethyl Alcohol SARS-CoV-2 (PCR) 09/19/21 09/19/21 09/19/21 15:00 15:03 17:09 WBC RBC Hgb Hct MCV MCH MCHC RDW Plt Count Neut % (Auto) Lymph % (Auto) [place] % (Auto) Eos % (Auto) Baso % (Auto) Neut # (Auto) Lymph # (Auto) [place] # (Auto) Eos # (Auto) Baso # (Auto) Sodium Potassium Chloride Carbon Dioxide BUN Creatinine Estimated GFR BUN/Creatinine Ratio Glucose Calcium Total Bilirubin AST ALT Alkaline Phosphatase Total Creatine Kinase CK-MB (CK-2) CK-MB (CK-2) Rel Index Troponin I NT-Pro-B Natriuret Pep Total Protein Albumin Globulin Albumin/Globulin Ratio Lipase Procalcitonin TSH Free T4 Urine Color Urine Appearance Urine pH Ur Specific Saline Urine Protein Urine Glucose (UA) Urine Ketones Urine Occult Blood Urine Nitrate Urine Bilirubin Urine Urobilinogen Ur Leukocyte Esterase Urine RBC Urine WBC Urine Bacteria Ur Culture Indicated? Salicylates U Opiates 300ng/mL cut Negative Ur Oxycodone Screen Negative Urine Methadone Screen Negative Acetaminophen Ur Barbiturates Screen Negative U Tricyclic Antidepress Negative Ur Phencyclidine Scrn Negative Ur Amphetamines Screen Negative U Methamphetamines Scrn Negative Ur MDMA Scrn (Ecstasy) Negative U Benzodiazepines Scrn Negative Urine Cocaine Screen Negative U Marijuana (THC) Screen Positive H Ethyl Alcohol SARS-CoV-2 (PCR) Negative Negative 09/19/21 17:09 WBC RBC Hgb Hct MCV MCH MCHC RDW Plt Count Neut % (Auto) Lymph % (Auto) [place] % (Auto) Eos % (Auto) Baso % (Auto) Neut # (Auto) Lymph # (Auto) [place] # (Auto) Eos # (Auto) Baso # (Auto) Sodium Potassium Chloride Carbon Dioxide BUN Creatinine Estimated GFR BUN/Creatinine Ratio Glucose Calcium Total Bilirubin AST ALT Alkaline Phosphatase Total Creatine Kinase CK-MB (CK-2) CK-MB (CK-2) Rel Index Troponin I NT-Pro-B Natriuret Pep Total Protein Albumin Globulin Albumin/Globulin Ratio Lipase Procalcitonin TSH Free T4 Urine Color Yellow Urine Appearance Clear Urine pH 5.5 Ur Specific Saline 1.020 Urine Protein Negative Urine Glucose (UA) Negative Urine Ketones Negative Urine Occult Blood Negative Urine Nitrate Negative Urine Bilirubin Negative Urine Urobilinogen 0.2 Ur Leukocyte Esterase Negative Urine RBC None seen Urine WBC None seen Urine Bacteria None seen Ur Culture Indicated? Cult not indicated Salicylates U Opiates 300ng/mL cut Ur Oxycodone Screen Urine Methadone Screen Acetaminophen Ur Barbiturates Screen U Tricyclic Antidepress Ur Phencyclidine Scrn Ur Amphetamines Screen U Methamphetamines Scrn Ur MDMA Scrn (Ecstasy) U Benzodiazepines Scrn Urine Cocaine Screen U Marijuana (THC) Screen Ethyl Alcohol SARS-CoV-2 (PCR) [facility] Medical History Anxiety Bipolar disorder Depression Eczema (~1975) Headache Insomnia Low back strain Surgical History Anesthesia Fractures (~1981) History of hernia repair (~1969) Family History Father Glaucoma Hypertension Mother Lung cancer Social History Smoking Status: Never smoker second hand exposure: No alcohol intake: never substance use type: does not use Discharge Assessment & Plan Assessment and Plan Assessment: Probable bipolar jacob episode. Lack of access to PCP. Plan of Treatment: SW to contact patient to assist in getting timely referrals to PCP and Psychiatry. Discharge Plan Discharge Plan Patient Disposition: Left Against Medical Advice Provider Discharge Comment: Soft admit. Requested SW and Psyche consult. SW to do phone f/u to assist patient in expediting medical and psyche appointments. Discharge orders & Medications Discharge Orders: Discharge (Order); Ordered 09/19/21 Ordered By: Missy Altamirano Prescriptions: Continued hydroxyzine pamoate 50 mg capsule 50 mg PO BEDTIME PRN (Reason: insomnia) Qty: 60 0RF Rx Instructions: Take 1-2 capsules at bedtime for insomnia levothyroxine 175 mcg tablet 175 mcg PO QAM 0RF Label Comments: take 1 tablet by mouth once daily Medication counseling provided by Pharmacist: No Follow up/Referrals: Zafar Carlson ARNP [Primary Care Provider] - Diet/Activity/Treatments Diet: Diet as Tolerated Skin/Wound/Dressing Care Report to your healthcare provider any signs of infection, such as:: chills, fever and night sweats Discharge Data Primary Care Provider: Zafar Carlson Quality VTE Deep Vein Thrombosis/Pulmonary Embolism Present on Admission: No MIPS - Admit I confirm the patient?s Advance Care Plan is present, Code status is documented, Surrogate decision maker is in patient?s record [If Yes, STOP here]: Yes MIPS - DC The patient has current or prior documentation of left ventricular ejection fraction (LVEF) less than 40%, or moderate or severely depressed left ventricular systolic function.: No
--- NOTE | 2021-09-19 22:52 | PC.NURSE ---
2215: Pt requesting to leave. States he has cats at home that he has to take care of and i live 30 seconds away i dont need to be here states his dizziness has resolved. Missy Altamirano NP made aware. Adarsh at bedside in department to speak to patient who has decided he would still like to leave. Signed AMA paperwork and advised of risks and benefits associated with him leaving. Pt AAOx3 and ambulatory with steady gait. Note placed to DAYSI Canales for follow up regarding psychiatric care. IV discontinued and pt left ED at 2220
--- NOTE | 2021-09-20 12:40 | P.CONS_ITS ---
History of Present Illness Consult details Chief complaint: Dizzy, and hard to breath Narrative: REFERRAL INFORMATION This is the [first] psychiatric evaluation for this [age] [male-female] [source of referral] for evaluation of [reason for referral]. RECORDS REVIEW The patient?s referral documents, medical records and intake questionnaire were reviewed as part of this evaluation. CHIEF COMPLAINT ?[]? HISTORY OF PRESENT ILLNESS [] PAST PSYCHIATRIC HISTORY - Diagnoses: [] - Inpatient: [None.] - Outpatient: [None.] - Suicide Attempts: [None.] PREVIOUS PSYCHIATRIC MEDICATION TRIALS [The patient has no prior history of psychotropic medication treatment.] CURRENT PSYCHOTROPIC MEDICATIONS [] FAMILY HISTORY - Maternal: [None.] - Paternal: [None.] - Siblings: [None.] SUBSTANCE USE HISTORY - Tobacco: [The patient does not smoke.] - Alcohol: [The patient does not drink. No history of abuse.] - Drugs: [The patient does not use drugs.] DEVELOPMENTAL AND SOCIAL HISTORY - Family Constellation/Environment: [] - Childhood Trauma: [The patient denied any history of physical or sexual abuse, and has no history of witnessing violence as a child.] - Developmental milestones: [The patient reached normal developmental milestones.] - Education: [The patient was an adequate student in school and graduated from high school.] - Employment: [] - Relationships: [] - Current Living: [] - Support: [Income from employment.] - Legal: [No current legal difficulties.] HISTORY - [None.] - Deployments: [N/A] - Combat Exposure: [N/A] - Blast Exposure: [N/A] SIGNIFICANT MEDICAL HISTORY PCP: [] - Allergies: [NKDA] - Medical Problems: [] - Current Medications: See list above. - Herbals/Supplements: [None.] REVIEW OF SYSTEMS - Review of Systems is unremarkable [except for]. - Psych ROS per HPI. MENTAL STATUS EXAM * Appearance: [] * Grooming: [Neatly dressed and adequately groomed] * Behavior: [Calm and cooperative with the evaluation] * Gait: [Normal] * Speech: [Normal rate, volume, and chema] * Mood: ?[]? * Affect: [Pleasant, smiling, generally euthymic] [Congruent with content, normal range and reactivity] * Thought Process: [Linear, logical, and goal-directed] * Thought Content: [Denies suicidal ideation, denies homicidal ideation, intent or plan; and thee was no evidence of a formal thought or perceptual disturbance.] * Attention: [Attentive to interview] * Orientation: [Oriented to person, place, time, and circumstance] * Memory: [Intact for interview, not formally tested] * Insight: [Fair] * Judgment: [Fair] DATA * Labs: * [] * RATING SCALES: Date PHQ-9 CHANCE-7 ASSESSMENT/MEDICAL DECISION MAKING [] DIAGNOSES/PROBLEMS [] Meds Home Medications and Allergies Home Medications Medication Instructions Recorded Confirmed Type hydroxyzine pamoate 50 mg capsule 50 mg PO BEDTIME PRN #60 cap 11/05/20 09/19/21 Rx levothyroxine 175 mcg tablet 175 mcg PO QAM 09/19/21 09/19/21 History Allergies Allergy/AdvReac Type Severity Reaction Status Date / Time zolpidem [From Ambien] Allergy Severe throat Verified 09/19/21 15:00 swelling lithium Allergy Intermediate Lightheadedness, Verified 09/19/21 15:00 ringing ears. trazodone Allergy Patient Verified 09/19/21 15:00 unsure, thinks he may have been allergic to it. Exam Vital Signs (past 8 hours): Oxygen Delivery Method Room Air Narrative Exam Narrative: MENTAL STATUS EXAM * Appearance: [] * Grooming: [Neatly dressed and adequately groomed] * Behavior: [Calm and cooperative with the evaluation] * Gait: [Normal] * Speech: [Normal rate, volume, and chema] * Mood: ?[]? * Affect: [Pleasant, smiling, generally euthymic] [Congruent with content, normal range and reactivity] * Thought Process: [Linear, logical, and goal-directed] * Thought Content: [Denies suicidal ideation, denies homicidal ideation, intent or plan; and thee was no evidence of a formal thought or perceptual dis turbance.] * Attention: [Attentive to interview] * Orientation: [Oriented to person, place, time, and circumstance] * Memory: [Intact for interview, not formally tested] * Insight: [Fair] * Judgment: [Fair] Objective Labs Result Diagrams: 09/19/21 14:55 09/19/21 14:55 Labs: Laboratory Results - last 24 hr 09/19/21 09/19/21 09/19/21 14:55 14:55 14:55 WBC 7.1 RBC 4.42 L Hgb 13.5 Hct 39.8 L MCV 90.0 MCH 30.6 MCHC 34.0 RDW 13.3 Plt Count 252 Neut % (Auto) 68.4 Lymph % (Auto) 20.9 L [place]ick % (Auto) 8.5 Eos % (Auto) 1.1 L Baso % (Auto) 1.1 Neut # (Auto) 4900 Lymph # (Auto) 1500 M[place]ormick # (Auto) 600 Eos # (Auto) 100 Baso # (Auto) 100 Sodium 136 L Potassium 3.9 Chloride 102 Carbon Dioxide 23 BUN 12 Creatinine 0.76 Estimated GFR > 60.0 BUN/Creatinine Ratio 15.8 Glucose 117 H Calcium 9.0 Total Bilirubin 0.6 AST 50 ALT 20 Alkaline Phosphatase 48 Total Creatine Kinase 347 H CK-MB (CK-2) 8.97 H CK-MB (CK-2) Rel Index 2.6 Troponin I < 0.012 NT-Pro-B Natriuret Pep 46 Total Protein 7.6 Albumin 4.5 Globulin 3.1 Albumin/Globulin Ratio 1.5 Lipase 78 Procalcitonin TSH Free T4 Urine Color Urine Appearance Urine pH Ur Specific [place] Urine Protein Urine Glucose (UA) Urine Ketones Urine Occult Blood Urine Nitrate Urine Bilirubin Urine Urobilinogen Ur Leukocyte Esterase Urine RBC Urine WBC Urine Bacteria Ur Culture Indicated? Salicylates 6.9 U Opiates 300ng/mL cut Ur Oxycodone Screen Urine Methadone Screen Acetaminophen < 10 L Ur Barbiturates Screen U Tricyclic Antidepress Ur Phencyclidine Scrn Ur Amphetamines Screen U Methamphetamines Scrn Ur MDMA Scrn (Ecstasy) U Benzodiazepines Scrn Urine Cocaine Screen U Marijuana (THC) Screen Ethyl Alcohol < 10 SARS-CoV-2 (PCR) 09/19/21 09/19/21 09/19/21 14:55 14:55 14:55 WBC RBC Hgb Hct MCV MCH MCHC RDW Plt Count Neut % (Auto) Lymph % (Auto) [place] % (Auto) Eos % (Auto) Baso % (Auto) Neut # (Auto) Lymph # (Auto) [place] # (Auto) Eos # (Auto) Baso # (Auto) Sodium Potassium Chloride Carbon Dioxide BUN Creatinine Estimated GFR BUN/Creatinine Ratio Glucose Calcium Total Bilirubin AST ALT Alkaline Phosphatase Total Creatine Kinase CK-MB (CK-2) CK-MB (CK-2) Rel Index Troponin I NT-Pro-B Natriuret Pep Total Protein Albumin Globulin Albumin/Globulin Ratio Lipase Procalcitonin 0.03 TSH 8.09 H Free T4 1.54 Urine Color Urine Appearance Urine pH Ur Specific [place] Urine Protein Urine Glucose (UA) Urine Ketones Urine Occult Blood Urine Nitrate Urine Bilirubin Urine Urobilinogen Ur Leukocyte Esterase Urine RBC Urine WBC Urine Bacteria Ur Culture Indicated? Salicylates U Opiates 300ng/mL cut Ur Oxycodone Screen Urine Methadone Screen Acetaminophen Ur Barbiturates Screen U Tricyclic Antidepress Ur Phencyclidine Scrn Ur Amphetamines Screen U Methamphetamines Scrn Ur MDMA Scrn (Ecstasy) U Benzodiazepines Scrn Urine Cocaine Screen U Marijuana (THC) Screen Ethyl Alcohol SARS-CoV-2 (PCR) 09/19/21 09/19/21 09/19/21 15:00 15:03 17:09 WBC RBC Hgb Hct MCV MCH MCHC RDW Plt Count Neut % (Auto) Lymph % (Auto) [place] % (Auto) Eos % (Auto) Baso % (Auto) Neut # (Auto) Lymph # (Auto) [place] # (Auto) Eos # (Auto) Baso # (Auto) Sodium Potassium Chloride Carbon Dioxide BUN Creatinine Estimated GFR BUN/Creatinine Ratio Glucose Calcium Total Bilirubin AST ALT Alkaline Phosphatase Total Creatine Kinase CK-MB (CK-2) CK-MB (CK-2) Rel Index Troponin I NT-Pro-B Natriuret Pep Total Protein Albumin Globulin Albumin/Globulin Ratio Lipase Procalcitonin TSH Free T4 Urine Color Urine Appearance Urine pH Ur Specific [place] Urine Protein Urine Glucose (UA) Urine Ketones Urine Occult Blood Urine Nitrate Urine Bilirubin Urine Urobilinogen Ur Leukocyte Esterase Urine RBC Urine WBC Urine Bacteria Ur Culture Indicated? Salicylates U Opiates 300ng/mL cut Negative Ur Oxycodone Screen Negative Urine Methadone Screen Negative Acetaminophen Ur Barbiturates Screen Negative U Tricyclic Antidepress Negative Ur Phencyclidine Scrn Negative Ur Amphetamines Screen Negative U Methamphetamines Scrn Negative Ur MDMA Scrn (Ecstasy) Negative U Benzodiazepines Scrn Negative Urine Cocaine Screen Negative U Marijuana (THC) Screen Positive H Ethyl Alcohol SARS-CoV-2 (PCR) Negative Negative 09/19/21 17:09 WBC RBC Hgb Hct MCV MCH MCHC RDW Plt Count Neut % (Auto) Lymph % (Auto) [place] % (Auto) Eos % (Auto) Baso % (Auto) Neut # (Auto) Lymph # (Auto) [place] # (Auto) Eos # (Auto) Baso # (Auto) Sodium Potassium Chloride Carbon Dioxide BUN Creatinine Estimated GFR BUN/Creatinine Ratio Glucose Calcium Total Bilirubin AST ALT Alkaline Phosphatase Total Creatine Kinase CK-MB (CK-2) CK-MB (CK-2) Rel Index Troponin I NT-Pro-B Natriuret Pep Total Protein Albumin Globulin Albumin/Globulin Ratio Lipase Procalcitonin TSH Free T4 Urine Color Yellow Urine Appearance Clear Urine pH 5.5 Ur Specific [place] 1.020 Urine Protein Negative Urine Glucose (UA) Negative Urine Ketones Negative Urine Occult Blood Negative Urine Nitrate Negative Urine Bilirubin Negative Urine Urobilinogen 0.2 Ur Leukocyte Esterase Negative Urine RBC None seen Urine WBC None seen Urine Bacteria None seen Ur Culture Indicated? Cult not indicated Salicylates U Opiates 300ng/mL cut Ur Oxycodone Screen Urine Methadone Screen Acetaminophen Ur Barbiturates Screen U Tricyclic Antidepress Ur Phencyclidine Scrn Ur Amphetamines Screen U Methamphetamines Scrn Ur MDMA Scrn (Ecstasy) U Benzodiazepines Scrn Urine Cocaine Screen U Marijuana (THC) Screen Ethyl Alcohol SARS-CoV-2 (PCR) [facility] Medical History Anxiety Bipolar disorder Depression Eczema (~1975) Headache Insomnia Low back strain Surgical History Anesthesia Fractures (~1981) History of hernia repair (~1969) Family History Father Glaucoma Hypertension Mother Lung cancer Tobacco & Substance Use Smoking Status: Never smoker second hand exposure: No alcohol intake: never substance use type: does not use Assessment & Plan Assessment and plan Plan PROBLEMS/TREATMENT GOALS/STATUS COORDINATION OF CARE * [Will coordinate with PCP as appropriate.] * Consults: [None at this time.] DIAGNOSTIC INTERVENTIONS * Imaging: [None at this time.] * Labs: [CBC, Chem Panel, TSH/T4, UA and Tox Screen if no recent labs from PCP] * Psych testing: [None at this time.] MEDICATIONS * [] * >>Controlled Substance Use Agreement signed [] * >>[employer]PER[employer]OR report checked prior to today?s visit shows no unusual activity. PSYCHOTHERAPY * Will incorporate psychodynamic, cognitive behavioral, and supportive techniques into our sessions. LIFESTYLE INTERVENTIONS * Discussed good nutrition * Discussed need for exercise daily, walking recommended * Discussed comprehensive practice of good sleep hygiene * [Additional intervention efforts] FOLLOW UP * Return to clinic in [4-6] weeks. * Call the clinic during business hours with questions. * Call 911 or crisis line in case of emergent safety concern or other crisis Time Spent With Patient Critical Care time: I spent a total of [] minutes of critical care time on this patient's care today; this time is exclusive of procedural time.
--- NOTE | 2021-09-20 12:46 | CM.SWNOTE ---
Addendum entered by Ally Kennedy 09/26/21 11:37: HEALTH CARE SOCIAL WORKER f/u Note HEALTH CARE SOCIAL WORKER receives VMs from patient asking for assistance getting a PCP appt. HEALTH CARE SOCIAL WORKER calls [facility] provider line and schedules an appt for patient for 11/03/21 at 1:45pm with PCP LISA Solis. Patient states he has tried to find a MH provider and if he is in need of urgent care he will return to the ER. DAYSI Swain Original Note: HEALTH CARE SOCIAL WORKER f/u Note HEALTH CARE SOCIAL WORKER receives consult regarding patient who left AMA last night, patient was in the process of being admitted for observation due to enxephalopathy and confusion. It was reported that patient chose to leave AMA to take care of his cats and patient was A/Ox4 when he made this decision. HEALTH CARE SOCIAL WORKER calls patient and patient endorses that he made it home, had a great night sleep and his appetite is back and he has been eating well. Patient endorses that he is feeling much better today. Patient endorses that he tried to be seen by PCP LISA Solis but she was booked until 11/17/21 so patient proceeded to go to the ED due to concern for his hard time breathing, anxiety and confusion. Patient endorses that he is glad he went to the ED and had the tests done and he is feeling much better. Patient asks what he can do in these situations. HEALTH CARE SOCIAL WORKER suggests calling PCP, calling insurance nurse hotline, coming to the ED if urgent and also going to the walk in clinic as an option. HEALTH CARE SOCIAL WORKER offers to schedule ED f/u appt for patient with PCP but patient declines, after further discussion patient states he will think about it and call HEALTH CARE SOCIAL WORKER back tomorrow if he changes his mind. Via phone patient presents as coherent and communicative. Patient endorses that he is taking care of himself just fine and he knows that his brother was worried about him. Patient asks that HEALTH CARE SOCIAL WORKER does not contact his brother because he has already been in touch with patient today. Patient endorses that he is glad he came to the ED, he states he received excellent care and was well taken care of at the hospital. Patient states that he wanted to go home and they released him. Plan: HEALTH CARE SOCIAL WORKER to await call from patient to schedule PCP ED f/u appt for patient. Ally Kennedy MSW
== END 2021-09-19 22:20 | disposition left against medical advice (07) ==
LOC: ED 17:00 → AC 22:25
PROVIDERS: Nurse Practitioner Family; Admitting Provider Hospitalist; Emergency Provider Emergency Medicine; PCP Nurse Practitioner Family; Referring Provider Emergency Medicine; Visit Provider Hospitalist
DX: G93.40 Encephalopathy, unspecified (principal); R42 Dizziness and giddiness; E03.9 Hypothyroidism, unspecified; F31.9 Bipolar disorder, unspecified; R41.0 Disorientation, unspecified; F41.9 Anxiety disorder, unspecified; W19.XXXA Unspecified fall, initial encounter; Z53.29 Procedure and treatment not carried out because of patient's decision for other reasons; Z20.822 Contact with and (suspected) exposure to COVID-19
CPT/HCPCS: 36415; 70450; 71046; 80053; 80305; 80320; 80329; 81001; 81003; 82550; 82553; 83690; 83880; 84145; 84439; 84443; 84484; 85025; 87635; 93005; 99284; C9803; G0378; G0480